=== PATIENT | female | born 1995 | race African-American/Black ===

== ENCOUNTER 2022-05-07 08:27 | Emergency (ER) | payer SELFPAY | END 2022-05-07 11:23 | disposition home or self-care (01) | LOC: CSHERS 08:27 | DX: O26.893 Other specified pregnancy related conditions, third trimester (principal); R10.9 Unspecified abdominal pain; Z3A.28 28 weeks gestation of pregnancy | CPT/HCPCS: 36415; 76815; 86900; 86901 ==

== ENCOUNTER 2022-05-07 11:40 | Day surgery (SDC) | payer SELFPAY ==
[2022-05-07 12:01] VITALS: BMI 44.6
[2022-05-07] MEDS ORDERED: hydrALAZINE 20 MG/ML VIAL SLOW IVP PRN (12:32)
== END 2022-05-07 12:50 | disposition home or self-care (01) ==
LOC: CSHLD/OP 11:40
PROVIDERS: ATTEND Obstetrics & Gynecology
DX: O26.893 Other specified pregnancy related conditions, third trimester (principal); R10.9 Unspecified abdominal pain; Z3A.28 28 weeks gestation of pregnancy
CPT/HCPCS: 99282

== ENCOUNTER 2023-07-20 10:41 | Emergency (ER) | payer OTHER, SELFPAY ==
[2023-07-20 12:54] LABS: Bilirubin Neg (Negative); Blood, Urine Negative (Negative); Clarity Clear (Clear); Glucose, Urine (Dipstick) Normal (Negative); Ketone, Urine 50 mg/dL (Negative); Leukocyte 100 (Negative); Nitrite Negative (Negative); Protein, Urine (Dipstick) 15 mg/dl (Neg-Trace); Specific Gravity, Urine 1.025 (1.005-1.030); Urobilinogen Normal mg/dL (Less than 2)
[2023-07-20 12:54] LABS: #Eosinphils 0.1 10x3/uL (0.0-0.5); #Monocytes 0.4 10x3/uL (0.0-1.1); %Basophils 0.4 % (0.0-2.0); %Eosinophils 1.4 % (0.0-6.0); %Lymphocytes 19.2 % (18.0-47.0); %Monocytes 4.7 % (0.0-10.0); %Neutrophils 73.9 % (40.0-75.0); Hematocrit 33.6 % (34.9-44.5); Hemoglobin 11.2 g/dL (12.0-15.5); Mean Corpuscular HGB CONC 33.3 g/dL (32.0-36.0); Mean Corpuscular Hemoglobin 29.9 pg (27.0-33.0); Mean Corpuscular Volume 89.8 fl (81.6-98.3); Mean Platelet Volume 9.9 fl (7.4-10.4); Platelet Count 331 10x3/uL (150-450); RBC Distribution Width 13.4 % (11.5-14.5); Red Blood Cell (RBC) Count 3.74 10x6/uL (3.90-5.03); White Blood Cell (WBC) Count 8.1 10x3/uL (3.5-10.5)
[2023-07-20 13:06] LABS: RBC/HPF 0-3 HPF (0-3)
[2023-07-20 13:07] LABS: Bacteria/HPF 2+ HPF (None Seen); CAUTI Indications for Culture Pregnancy
[2023-07-20 13:08] LABS: Urine Culture Reflex Yes Yes
[2023-07-20 13:23] LABS: ALT (SGPT) Less than 7 U/L (8-55); AST (SGOT) 10 U/L (5-34); Albumin 3.7 g/dL (3.5-5.0); Alkaline Phosphatase 41 U/L (40-110); Anion Gap 13 mmol/L (10-20); BUN (Urea Nitrogen) 7 mg/dL (7.0-18.7); Bilirubin, Total 0.8 mg/dL (0.2-1.2); Calc. Creatinine Clearance 0 mL/min (70-130); Calcium 8.8 mg/dL (7.8-10.44); Carbon Dioxide 19 mmol/L (22-29); Chloride 107 mmol/L (98-107); Estimated GFR 123; Globulin 3.2 g/dL (2.4-3.5); Glucose 82 mg/dL (70-105); Potassium 3.9 mmol/L (3.5-5.1); Protein, Total 6.9 g/dL (6.0-8.3); Sodium 135 mmol/L (136-145)
== END 2023-07-20 14:25 | disposition home or self-care (01) ==
LOC: CSHERS 10:41
DX: N39.0 Urinary tract infection, site not specified (principal); R19.7 Diarrhea, unspecified
CPT/HCPCS: 36415; 80053; 81001; 84702; 85025; 87086; 99284

== ENCOUNTER 2023-12-25 11:04 | Inpatient (IN) | payer OTHER ==
[2023-12-25 11:40] VITALS: BMI 44.4
[2023-12-25] MEDS ORDERED: fentaNYL 50 mcg/mL 1 mL Vial SLOW IVP PRN ×2 (12:25→14:36)
[2023-12-25] MEDS ORDERED: hydrALAZINE 20 MG/ML VIAL SLOW IVP PRN ×2 (12:25→16:06)
[2023-12-25] MEDS ORDERED: Tranexamic Acid 1,000 MG/10 ML VIAL IVP PRN (12:25)
[2023-12-25] MEDS ORDERED: Misoprostol 200 MCG TAB PR PRN (12:25)
[2023-12-25] MEDS ORDERED: Lidocaine 1% (PF) 30 ML VIAL SC PRN (12:25)
[2023-12-25] MEDS ORDERED: Ibuprofen 800 MG TAB PO PRN (12:25)
[2023-12-25] MEDS ORDERED: Methylergonovine 0.2 MG/ML VIAL IM PRN (12:25)
[2023-12-25] MEDS ORDERED: HYDROcodone/Acetaminophen 5/325 mg Tablet PO PRN (12:25)
[2023-12-25] MEDS ORDERED: Acetaminophen 500 MG TAB PO PRN (12:25)
[2023-12-25] MEDS ORDERED: Carboprost 250 MCG/ML AMP IM PRN (12:25)
[2023-12-25] MEDS ORDERED: Promethazine HCl 25 MG/ML VIAL IM PRN ×2 (12:25→16:06)
[2023-12-25] MEDS ORDERED: Diphenoxylate HCl/Atropine Tablet PO PRN (12:25)
[2023-12-25] MEDS ORDERED: Ondansetron PF 4 MG/2 ML Vial IVP PRN ×3 (12:25→16:06)
[2023-12-25] MEDS ORDERED: Lactated Ringer's 1,000 ML IV SCH (12:30)
[2023-12-25] MEDS ORDERED: Oxytocin 30 units/NS 500 ML 500 ML IV SCH ×4 (12:30→16:06)
[2023-12-25 13:02] LABS: Hematocrit 31.2 % (34.9-44.5); Hemoglobin 10.4 g/dL (12.0-15.5); Mean Corpuscular HGB CONC 33.3 g/dL (32.0-36.0); Mean Corpuscular Hemoglobin 31.7 pg (27.0-33.0); Mean Corpuscular Volume 95.1 fl (81.6-98.3); Platelet Count 269 10x3/uL (150-450); RBC Distribution Width 14.2 % (11.5-14.5); Red Blood Cell (RBC) Count 3.28 10x6/uL (3.90-5.03); White Blood Cell (WBC) Count 10.5 10x3/uL (3.5-10.5)
[2023-12-25 13:40] LABS: HBSAg Index 0.22 S/CO (0-0.99); Hep B Surf Ag - L&D Non-Reactive S/CO (NonReactive)
[2023-12-25 13:42] LABS: Syphilis Antibody Nonreactive (Nonreactive); Syphilis Antibody Index 0.21 S/CO (<1.00 Non-Reactive)
[2023-12-25] MEDS: CEFAZOLIN 2 GM VIAL ONE (13:46)
[2023-12-25] MEDS: Azithromycin 500 MG VIAL ONE (13:46)
[2023-12-25] MEDS ORDERED: Meperidine HCl/PF 25 MG (1 mL) VIAL SLOW IVP PRN (14:36)
[2023-12-25] MEDS ORDERED: Ketorolac Tromethamine 30 MG (1 mL) VIAL IVP SCH (14:45)
[2023-12-25] MEDS ORDERED: Lanolin Ointment 7 GM TUBE TOP PRN (16:06)
[2023-12-25] MEDS ORDERED: Benzocaine-Menthol 82.5 ML CAN TOP PRN (16:06)
[2023-12-25] MEDS ORDERED: Bisacodyl 10 MG SUPP PR PRN (16:06)
[2023-12-25] MEDS ORDERED: Milk Of Magnesia 30 ML UDCUP PO PRN (16:06)
[2023-12-25] MEDS ORDERED: diphenhydrAMINE 25 MG CAP PO PRN (16:06)
[2023-12-25] MEDS: HYDROcodone/Acetaminophen 5/325 mg Tablet PO PRN (16:40)
[2023-12-25] MEDS: Dexamethasone 4 mg/ml Vial ONE (17:19)
[2023-12-25] MEDS: Oxytocin 30 units/NS 500 ML 500 ML ONE (17:19)
[2023-12-25] MEDS: fentaNYL 50 mcg/mL 1 mL Vial ONE (17:19)
[2023-12-25] MEDS: Lidocaine 1% (PF) 30 ML VIAL ONE (17:19)
[2023-12-25] MEDS: PROPOFOL 20 ML ONE (17:20)
[2023-12-25] MEDS: Lidocaine 1% PF 5 ML VIAL ONE (17:20)
[2023-12-25] MEDS: Ondansetron PF 4 MG/2 ML Vial ONE (17:20)
[2023-12-25] MEDS: Midazolam HCl 2 mg/2 ml Vial ONE (17:20)
[2023-12-25] MEDS: SUCCINYLCHOLINE/SOD CL,ISO/PF 200 MG/10 ML SYRINGE FS ONE (17:21)
[2023-12-25] MEDS: Boostrix 0.5 ML (Tdap) VIAL (>/=7 yrs of age) IM ONE (17:21)
[2023-12-25] MEDS: Ferrous Sulfate 325 MG TAB PO SCH (17:42)
[2023-12-25] MEDS: Docusate 100 MG CAP PO SCH (21:39)
[2023-12-25] MEDS: Ibuprofen 800 MG TAB PO SCH (21:39)
[2023-12-26] MEDS: Prenatal Vitamin 1 TAB PO SCH (08:45)
[2023-12-26 12:55] VITALS: BP 114/64; TEMP 98.2
== END 2023-12-26 15:55 | disposition home or self-care (01) | DRG 807 ==
LOC: CSHLD/OP 11:04 → CSHLD 11:50 → CSHPP 16:48
PROVIDERS: ADMIT Family Medicine; ATTEND Family Medicine
PROC: 10E0XZZ Delivery of Products of Conception, External Approach (ICD-10-PCS; principal; 2023-12-25)
DX: O80 Encounter for full-term uncomplicated delivery (principal); Z37.0 Single live birth; Z3A.39 39 weeks gestation of pregnancy
CPT/HCPCS: 85027; 86780; 86850; 86900; 86901; 87340; 99285; J0456; J1100; J2250; J2405; J2704; J3010